=== PATIENT | female | born 1995 ===

== ENCOUNTER 2024-08-05 10:54 | Outpatient (CLI) | payer BC, SELFPAY | END 2024-08-05 10:55 | disposition home or self-care (01) | PROVIDERS: Visit Provider Family Medicine | DX: Z34.91 Encounter for supervision of normal pregnancy, unspecified, first trimester (principal); Z3A.01 Less than 8 weeks gestation of pregnancy | CPT/HCPCS: 80053; 86592; 86703; 86706; 86762; 86787; 86803; 86900; 86901; 87086; 87340; 87491; 87591 ==

== ENCOUNTER 2024-08-30 14:53 | Outpatient (CLI) | payer BC, SELFPAY ==
--- NOTE | 2024-08-30 15:00 | CRLHL7_ITS ---
For Patients: As a result of the Cures Act, medical imaging exams and procedure reports are released immediately into your electronic medical record. You may view this report before your referring provider. If you have questions, please contact your health care provider. INDICATION: First trimester scan, establish dates. COMPARISON: None. TECHNIQUE: Real-time gore-scale imaging of the pelvis was performed. FINDINGS: Sonographic imaging demonstrates a single living intrauterine gestation. The embryo demonstrates a regular cardiac rate measuring 169 beats per minute. The embryo`s crown-rump length measurement of 1.8 cm corresponds to a gestational age of 8 weeks 2 days with a sonographic due date of 04/09/2025. There is a normal-appearing yolk sac. There are no gross abnormalities noted within the embryo at this early state of development. The gestational sac has a normal appearance. There is no evidence of a perigestational hemorrhage. The amount of fluid within the sac appears appropriate for gestational age. The cervix is closed. The myometrium appears normal. Corpus luteal cyst right ovary. Nonvisualization left ovary. There are no suspicious fluid collections noted in the cul-de-sac. IMPRESSION: Single living intrauterine with sonographic gestational age 8 weeks 2 days and sonographic due date of 04/09/2025. Dictated by George Flor MD @ 08/30/2024 10:15:51 PM (Electronically Signed)
== END 2024-08-30 14:54 | disposition home or self-care (01) ==
PROVIDERS: Visit Provider Advanced Practice Midwife
DX: Z34.91 Encounter for supervision of normal pregnancy, unspecified, first trimester (principal); Z3A.08 8 weeks gestation of pregnancy
CPT/HCPCS: 76817

== ENCOUNTER 2024-08-30 16:33 | Outpatient (CLI) | payer BC, SELFPAY | END 2024-08-30 16:34 | disposition home or self-care (01) | PROVIDERS: Visit Provider Advanced Practice Midwife | DX: Z34.81 Encounter for supervision of other normal pregnancy, first trimester (principal); F19.11 Other psychoactive substance abuse, in remission | CPT/HCPCS: 80306; 86704; 86850 ==

== ENCOUNTER 2024-11-02 15:13 | Outpatient (CLI) | payer BC, SELFPAY | END 2024-11-02 15:14 | disposition home or self-care (01) | PROVIDERS: Visit Provider Obstetrics & Gynecology | DX: F19.11 Other psychoactive substance abuse, in remission (principal) | CPT/HCPCS: 80306 ==

== ENCOUNTER 2025-02-10 12:06 | Outpatient (CLI) | payer BC, SELFPAY | END 2025-02-10 12:07 | disposition home or self-care (01) | LOC: NFLDREF 02-13 18:23 | PROVIDERS: Visit Provider Obstetrics & Gynecology | DX: Z34.90 Encounter for supervision of normal pregnancy, unspecified, unspecified trimester (principal); Z3A.09 9 weeks gestation of pregnancy | CPT/HCPCS: 86592 ==

== ENCOUNTER 2025-02-10 12:08 | Outpatient (CLI) | payer BC, SELFPAY ==
--- NOTE | 2025-02-10 12:15 | CRLHL7_ITS ---
For Patients: As a result of the Cures Act, medical imaging exams and procedure reports are released immediately into your electronic medical record. You may view this report before your referring provider. If you have questions, please contact your health care provider. OBSTETRICAL ULTRASOUND ??? FOLLOW-UP INDICATION: Long-term drug use. CLINICAL HISTORY: AME by Ultrasound: 04/09/2025 Gestational Age: 31 weeks 5 days COMPARISON: 11/11/2024, 08/30/2024 TECHNIQUE: Real-time gore-scale transabdominal imaging of the fetus was performed. FINDINGS: Fetus: Single Cervix: Not visualized positioning: Vertex Amniotic Fluid: 6.8 cm SDP Placenta technique: Transabdominal Placenta position: Posterior heart rate: 133 bpm BIOMETRY: BPD: 8.4 cm, 33 weeks 4 days, 89.3% HC: 30.3 cm, 33 weeks 5 days, 68.2% AC: 28.6 cm, 32 weeks 4 days, 73.2% FL: 6.3 cm, 32 weeks 4 days, 60.2% FL/AC Ratio: 22.03% HC/AC ratio: 1.06 EFW: 2046 grams; 4 lbs. 8 oz. age by this ultrasound: 33 weeks 1 day AME by this ultrasound: 03/30/2025 Percentile by AME: 73.7% IMPRESSION: 1. Sonographic gestational age is 33 weeks 1 day and sonographic due date is 03/30/2025. Sonographic age is 10 days ahead of the clinical age. 2. Estimated weight is 74th percentile. Abdominal circumference is 73rd percentile. GEORGE CONCEPCION M.D. Diagnostic Radiologist [email or web address] Transcribed: 1:[address]/Dictated by: George Concepcion MD @ 02/10/2025 1:08:00 PM (Electronically Signed)
== END 2025-02-10 12:09 | disposition home or self-care (01) ==
LOC: US 12:09
PROVIDERS: Visit Provider Obstetrics & Gynecology
DX: O99.323 Drug use complicating pregnancy, third trimester (principal); F19.90 Other psychoactive substance use, unspecified, uncomplicated; O36.63X0 Maternal care for excessive fetal growth, third trimester, not applicable or unspecified; Z3A.31 31 weeks gestation of pregnancy; Z3A.09 9 weeks gestation of pregnancy
CPT/HCPCS: 76816; 86592

== ENCOUNTER 2025-03-02 08:14 | Outpatient (CLI) | payer BC, SELFPAY | END 2025-03-02 08:15 | disposition home or self-care (01) | LOC: NFLDREF 03-03 05:45 | PROVIDERS: Visit Provider Obstetrics & Gynecology | DX: R73.09 Other abnormal glucose (principal); Z34.93 Encounter for supervision of normal pregnancy, unspecified, third trimester | CPT/HCPCS: 82951; 82952 ==

== ENCOUNTER 2025-03-10 12:08 | Outpatient (CLI) | payer BC, SELFPAY ==
--- NOTE | 2025-03-10 12:15 | CRLHL7_ITS ---
For Patients: As a result of the Cures Act, medical imaging exams and procedure reports are released immediately into your electronic medical record. You may view this report before your referring provider. If you have questions, please contact your health care provider. OBSTETRICAL ULTRASOUND ??? FOLLOW-UP INDICATION: Long-term (current) drug therapy. CLINICAL HISTORY: AME by Ultrasound: 04/09/2025 Gestational Age: 35 weeks 5 days COMPARISON: 02/10/2025, 11/11/2024, 08/30/2024. TECHNIQUE: Real-time gore-scale transabdominal imaging of the fetus was performed. FINDINGS: Fetus: Single Cervix: Not visualized positioning: Vertex Amniotic Fluid: 7.7 cm SDP Placenta technique: Transabdominal Placenta position: Posterior heart rate: 133 bpm BIOMETRY: BPD: 9.2 cm, 37 weeks 3 days, 93.1% HC: 33.0 cm, 37 weeks 4 days, 65.7% AC: 33.0 cm, 37 weeks 0 days, 87.6% FL: 6.9 cm, 35 weeks 3 days, 37.8% FL/AC Ratio: 20.93% HC/AC ratio: 1.00 EFW: 3010 grams; 6 lbs. 10 oz. age by this ultrasound: 36 weeks 6 days AME by this ultrasound: 04/01/2025 Percentile by AME: 77.0% IMPRESSION: 1. Sonographic gestational age is 36 weeks 6 days and sonographic due date is 04/01/2025. Sonographic age is 8 days ahead of the clinical age. 2. Estimated weight is 77th percentile. Abdominal circumference is 88th percentile. GEORGE CONCEPCION M.D. Diagnostic Radiologist [email or web address] Transcribed: 4:[address]/Dictated by: George Concepcoin MD @ 03/10/2025 2:26:00 PM (Electronically Signed)
== END 2025-03-10 12:09 | disposition home or self-care (01) ==
LOC: US 12:08
PROVIDERS: Visit Provider Obstetrics & Gynecology
DX: O99.343 Other mental disorders complicating pregnancy, third trimester (principal); F90.9 Attention-deficit hyperactivity disorder, unspecified type; O99.013 Anemia complicating pregnancy, third trimester; Z79.899 Other long term (current) drug therapy; Z3A.35 35 weeks gestation of pregnancy
CPT/HCPCS: 76816

== ENCOUNTER 2025-03-10 14:50 | Outpatient (CLI) | payer BC, SELFPAY ==
[2025-03-11 13:41] LABS: Strep B DNA Probe POSITIVE (Negative)
[2025-03-11 13:45] LABS: Strep B Susceptibility Needed? No
== END 2025-03-10 14:51 | disposition home or self-care (01) ==
LOC: NFLDREF 14:50
PROVIDERS: Visit Provider Obstetrics & Gynecology
DX: O99.013 Anemia complicating pregnancy, third trimester (principal); Z3A.35 35 weeks gestation of pregnancy
CPT/HCPCS: 82728; 87081; 87653

== ENCOUNTER 2025-03-21 10:05 | Outpatient (CLI) | payer BC, SELFPAY ==
--- NOTE | 2025-03-21 10:00 | CRLHL7_ITS ---
For Patients: As a result of the Cures Act, medical imaging exams and procedure reports are released immediately into your electronic medical record. You may view this report before your referring provider. If you have questions, please contact your health care provider. OB ULTRASOUND AME by US: 04/09/2025. GA: 37 w, 2 d. Single. Comparison: Ultrasound 03/10/2025, 02/10/2025, 01/19/2025. INDICATION: Gestational diabetes. TECHNIQUE: Real time grayscale imaging of the fetus was performed. Transabdominal. CERVIX: Not visualized. POSITIONING: Vertex. AMNIOTIC FLUID: 6.1 cm. SDP (N: greater than 2 x 1 cm) BIOPHYSICAL PROFILE: 2: Gross body movements 2: tone 0: Respiratory activity 2: Amniotic fluid SDP (N: greater than 2 x 1 cm) 6/8: Total score PLACENTA: Technique: Transabdominal. PLACENTA POSITION: Anterior. DOPPLER: heart rate: 130 bpm. IMPRESSION: Biophysical profile score 6/8 with absent respiratory activity. George Flor M.D. Diagnostic Radiologist [email or web address]/Dictated by: George Flor MD @ 03/21/2025 11:47:00 AM (Electronically Signed)
== END 2025-03-21 10:06 | disposition home or self-care (01) ==
LOC: US 10:05
PROVIDERS: Visit Provider Obstetrics & Gynecology
DX: O35.BXX0 Maternal care for other (suspected) fetal abnormality and damage, fetal cardiac anomalies, not applicable or unspecified (principal); O24.419 Gestational diabetes mellitus in pregnancy, unspecified control; Z3A.37 37 weeks gestation of pregnancy
CPT/HCPCS: 76819

== ENCOUNTER 2025-03-21 11:43 | Outpatient (CLI) | payer BC, SELFPAY ==
[2025-03-21 12:00] VITALS: BMI 41.5
[2025-03-21 12:05] VITALS: BP 102/55; PULSE 75; TEMP 36.6
--- NOTE | 2025-03-21 14:59 | PC.OBNST ---
NST Note NST Note Start: 03/21/25 11:47 Freq: ONCE Status: Active Protocol: Document 03/21/25 14:00 CWP (Rec: 03/21/25 14:59 CWP Desktop) NST Note 5 Para (# of births) 3 EDC 04/09/25 Gestational Age In 37 Weeks & 2 Days Weeks & Days High Risk Factors Diabetes - Gestational Insulin Patient Presented Other with Complaint(s) of Other Complaints Decelerations noted in clinic during NST Reactive Yes Appropriate for Yes Gestational Age RN Erica Choe RNC Date 03/21/25 Reactive Yes Appropriate for Yes Gestational Age VIRGEN Ortez MD Date 03/21/25 OB NST charge Yes Complete NST Note Yes via Write Note The provider's electronic signature indicates the NST is reactive/appropriate for gestational age. *Note to provider: If an addendum is required, open the patient's chart and click on the note under the Nurse/Allied Health tab.
== END 2025-03-21 14:20 | disposition home or self-care (01) ==
LOC: OB OUT 11:43 → OB 11:46
PROVIDERS: Visit Provider Obstetrics & Gynecology
DX: O35.BXX0 Maternal care for other (suspected) fetal abnormality and damage, fetal cardiac anomalies, not applicable or unspecified (principal); O24.419 Gestational diabetes mellitus in pregnancy, unspecified control; Z3A.37 37 weeks gestation of pregnancy
CPT/HCPCS: 59025; G0463

== ENCOUNTER 2025-03-22 13:12 | Outpatient (CLI) | payer BC, SELFPAY ==
--- NOTE | 2025-03-22 13:15 | CRLHL7_ITS ---
For Patients: As a result of the Century Cures Act, medical imaging exams and procedure reports are released immediately into your electronic medical record. You may view this report before your referring provider. If you have questions, please contact your health care provider. INDICATION: Gestational diabetes TECHNIQUE: Ultrasound OB pelvis transabdominal. Real-time gore-scale imaging of the fetus was performed. COMPARISON: Ob ultrasound 03/21/2025 FINDINGS: Gestation: Single Presentation: Cephalic Placenta location: Posterior heart rate: 136 bpm Cervix: Not visualized Amniotic fluid volume single deepest pocket 4.9 cm, 2/2. motion 2/2. tone 2/2. breathing movements 2/2. IMPRESSION: Single live intrauterine gestation with a biophysical profile 12/09 at 37 weeks, 3 days. AME of 04/09/2025. Dictated by Marizol Khan MD @ 03/22/2025 3:28:10 PM (Electronically Signed)
== END 2025-03-22 13:13 | disposition home or self-care (01) ==
LOC: US 13:13
PROVIDERS: Visit Provider Obstetrics & Gynecology
DX: O24.419 Gestational diabetes mellitus in pregnancy, unspecified control (principal); Z3A.37 37 weeks gestation of pregnancy
CPT/HCPCS: 76819

== ENCOUNTER 2025-03-23 16:11 | Inpatient (IN) | payer BC, SELFPAY ==
[2025-03-23 16:25] VITALS: BP 115/63; PULSE 110; PULSE 113; TEMP 36.6; O2SAT 91
[2025-03-23 16:26] VITALS: PULSE 104; O2SAT 96
--- NOTE | 2025-03-23 16:58 | PM.OBHPLI ---
OB - H&P: HPI Labor/Induction History of Present Illness Time Seen by Provider: 16:58 Date Seen: 03/23/25 Chief complaint: maternity Narrative: The patient is a 30 year old 5 para 3 at 37 weeks gestation by first trimester US, who presents for scheduled induction of labor in the setting of poorly controlled GDM A2. Her complete H&P was completed by Dr. Ortez on 03/16, please see this for details. is otherwise complicated by GBS positivity, mental health disorder (anxiety, depression, ADHD, PTSD), polypharmacy in , anemia, history of substance use disorder (methamphetamine - sober X1 year at time of new Ob, THC), history of retained placenta, history of , GERD, tobacco use disorder with vaping. Of note, recent history notable for equivocal BPP on 03/21, where patient declined induction. BPP the following day was 8/8. Patient is feeling well today with no acute concerns. Had one contraction when she first got here, but denies regular/painful contractions. No vaginal bleeding or leaking of fluid. Endorses active movement. She is maintained on insulin NPH 15 units q.h.s., despite this, her blood sugars have remained suboptimally controlled. Specific Issues/Plans Fiance: Tony, first child together (She has 2 that live with Ex, 1 that lives with another Ex) He has other children as well H&P 03/16 Dr. Ortez # BPP 6/10 on 03/21. Patient declined IOL. Repeat BPP 03/20: [] # GDMA2 diagnosed 03/16 = 36 4/7 weeks Consult with August for initiation of insulin 03/16: NPH 15 u QHS Biweekly testing initiated IOL for 37th week Elevated 1hr GTT 3hrGTT: 119 fasting / consistent with gestational diabetes Q.i.d. blood sugar monitoring Nutrition consult: completed # GBS positive Ampicillin in labor # Significant Mental Health; Anxiety/Depression, ADHD, PTSD Stable on Atomoxetine 100 mg, Gabapentin 400 mg TID PRN, Guanfacine 1 mg QPM, Lamotrigine ER 100 mg, Methylphenidate HCL ER 72 mg, Prazosin 1 mg QPM Seeing a therapist, 1x week [facility] [place] daily, weekdays, on court commitment for 3 months (has about 1 month left) Psychiatrist, manages meds History of suicidal ideation MFM Recommendation: serial growth scans beginning 28 weeks due to polypharmacy. ? # Polypharmacy in . Seen by Medication Therapy management at [facility] 10/13 Atomoxetine: little human data; consider reducing dose Lamotrigine: possible increased risk of cleft lip Amphetamines (methylphenidate ER): possible increased risk of , LBW, preE; low risk with medicinal doses Gabapentin: possible increased risk of SGA, delivery Prazosin: low risk Marijuana: conflicting reports of risk #Anemia Hgb at 31 weeks: 7.8 mg/dL IV iron infusion: received 02/16 Repeat Hb at 36 weeks: 10.0 # Hx of Methamphetamine use, sober 1 yr, 1 months at [facility] Agreed to UDS, negative for methamphetamines Pt reports she only used meth for a short while UDS on 11/02: negative UDS on admission # Hx of THC use, reported she had not used since 02/03/2024 FALSE positive +THC at new Ob (confirmatory 08/30) UDS 11/02: negative UDS on admission ? # Hx of deliveries with 1st baby per records Per patient previous, all children born before 36 week; requested delivery notes Per records, her 2nd and 3rd child were born at 39.2 weeks, limited or no care during these pregnancies #GERD Omeprazole daily # Hx of retained placenta, 1st Removed in OR, delivery # Vaping, nicotine daily Encouraged to stop, reviewed risks # Hep B non-immune Low risk but desired vaccine - given 09/28 Imaging:? 1st trimester: (08/30) Single living intrauterine with sonographic gestational age 8 weeks 2 days and sonographic due date of 04/09/2025. Anatomy scan: 11/11: Level 2. cephalic, posterior placenta without previa, 3VC, MVP 5.2 cm, EFW 52%, AC 60%, normal anatomy. 02/11/25: Vertex, SDP: 6.8 cm. EFW: 2046g, 73.7%. AC: 73%. 03/10/25: Vertex presentation, EFW 3010 g (77%), BPD 93%, HC 66%, AC 88%, FL 38%, SDP 7.7 cm COVID:??09/28/24 Flu:?received Tdap:?02/10/25 RSV: 02/23/25 32wk Mental Health: VICENTA 2, PHQ 2 34wk hgb:??? Pap: 01/18/2024, NIL? Meds Home Medications and Allergies Home Medications ?Medication ?Instructions ?Recorded ?Confirmed ?Type albuterol sulfate 90 mcg/actuation 2 puff inhalation Q2H PRN 08/05/24 03/23/25 History aerosol inhaler (Ventolin HFA) epinephrine 0.3 mg/0.3 mL 0.3 mg (0.3 mL) IM Q5-15M PRN 08/05/24 03/23/25 Rx injection, auto-injector (EpiPen anaphylaxis #2 ea 2-Ren) gabapentin 400 mg capsule 400 mg PO 3XD PRN anxiety 08/05/24 03/23/25 History guanfacine 1 mg tablet 1 mg PO QPM 08/05/24 03/23/25 History lamotrigine 100 mg tablet,extended 100 mg PO DAILY 08/05/24 03/23/25 History release 24 hr methylphenidate HCl 36 mg 72 mg PO QAM 08/05/24 03/23/25 History tablet,extended release 24 hr prazosin 2 mg capsule 4 mg PO QHS 08/05/24 03/23/25 History omeprazole 20 mg capsule,delayed 20 mg PO BID #200 caps 11/30/24 03/23/25 Rx release ondansetron 4 mg disintegrating 4 - 8 mg (1 - 2 x 4 mg) PO QHS PRN 02/11/25 03/23/25 Rx tablet nausea and vomiting #20 tabs Blood Glucose Meter #1 ea 03/02/25 03/21/25 Rx Test Strips #100 ea 03/02/25 03/21/25 Rx lancets #100 ea 03/02/25 03/21/25 Rx alcohol swabs (Alcohol Pads) 2 pad topical DAILY #100 ea 03/16/25 03/23/25 Rx insulin NPH isoph U-100 human 100 15 unit (0.15 mL) subcut .hs #30 mL 03/16/25 03/23/25 Rx unit/mL subcutaneous suspension (Humulin N NPH U-100 Insulin (isophane susp)) insulin syringe-needle U-100 1 mL #20 ea 03/16/25 03/21/25 Rx 30 gauge x 5/16 (Sure Comfort Insulin Syringe) Allergies Allergy/AdvReac Type Severity Reaction Status Date / Time bee venom protein (honey bee) Allergy Severe Verified 03/23/25 16:48 strawberry Allergy Severe Anaphylaxis Verified 03/23/25 16:48 OB - H&P: Exam Physical Exam: Vital signs: Temp Pulse BP Pulse Ox 98 F 110 H 115/63 96 03/23/25 16:25 03/23/25 16:25 03/23/25 16:25 03/23/25 16:26 Narrative: General: Alert and oriented, no acute distress Psych: Appropriate mood and affect Abdomen: Gravid. EFW by ultrasound on 03/10 was 3010 g at 77th percentile, AC 88th percentile. Cervix: 1/50/-3. Cook catheter placed without difficulty, 60 mL of saline in each balloon. NST: Reactive. Baseline 130 beats per minute, moderate variability, several accelerations present, no apparent decelerations. Wisner: Uterine irritability with no obvious contractions. OB - Problem Based A/P Additional Plan (1) GDM, class A2: Status: Acute (2) Anemia affecting : Status: Acute (3) History of marijuana use: Status: Acute (4) History of methamphetamine abuse: Status: Acute (5) Major depression: Status: Acute (6) PTSD (post-traumatic stress disorder): Status: Acute (7) Generalized anxiety disorder: Status: Acute (8) ADHD: Status: Acute (9) GERD (gastroesophageal reflux disease): Status: Acute Plan Leanna is a 30 year old 5 para 3 at 37 weeks gestation by first trimester US, who presents for scheduled induction of labor in the setting of poorly controlled GDM A2. is otherwise complicated by GBS positivity, mental health disorder (anxiety, depression, ADHD, PTSD), polypharmacy in , anemia, history of substance use disorder (methamphetamine - sober X1 year at time of new Ob, THC), history of retained placenta, history of , GERD, tobacco use disorder with vaping. Her complete H&P was completed by Dr. Ortez on 03/16, please see this for details. - Cervix is 1/50/-3 on admission. Cook catheter placed without difficulty, plan low dose pitocin augmentation overnight. - Plan to administer half of her baseline insulin - 8u NPH at bedtime tonight. Continue BG monitoring and SSI per protocol. - GBS positive, start ampicillin alongside pitocin or with ROM. - BT A+
[2025-03-23 17:00] VITALS: PULSE 88; O2SAT 96
[2025-03-23 18:53] LABS: Hematocrit* 34.1 % (33.0-51.0); Hemoglobin* 10.7 gm/dL (12.0-16.0); Immature Granulocytes Pct Auto 0.9 %; Mean Corpuscular HGB Conc 31 gm/dL (32-36); Mean Corpuscular Hemoglobin 25 pg (26-34); Mean Corpuscular Volume 81 fL (80-100); Red Blood Count* 4.23 m/uL (4.00-5.20); White Blood Count* 12.40 K/uL (4.50-11.00)
[2025-03-23 18:54] LABS: Immature Granulocytes Abs Auto 0.10 K/uL (0.00-0.30); Lymphocytes Absolute Auto 1.70 K/uL (0.90-2.90); Slide Review Reflex Yes
[2025-03-23 19:28] LABS: Slide Review Acceptable Review (Acceptable)
[2025-03-23 19:59] LABS: Cannabinoid Screen Urine POSITIVE (Negative); Methamphetamines Screen Urine Negative (Negative); Tricyclic Antidepressant Urine Negative (Negative)
[2025-03-23 20:10] VITALS: BMI 41.6
[2025-03-23] MEDS: GABAPENTIN 600 MG TABLET 400 MG PO (20:35)
[2025-03-23] MEDS: OMEPRAZOLE 20 MG CAPSULE DR PO (20:35)
[2025-03-23] MEDS: PRAZOSIN HCL 1 MG CAPSULE 4 MG PO (20:37)
[2025-03-23] MEDS: INSULIN NPH 100 UNIT/ML 8 UNIT SUBCUT (20:53)
[2025-03-23 20:57] VITALS: BP 105/53; PULSE 77; RESP 16; TEMP 36.8
[2025-03-23 23:41] VITALS: BP 111/58; PULSE 90; RESP 16; TEMP 36.8
[2025-03-24] VITALS (47 sets, daily range): BP systolic 82–125; BP diastolic 47–73; PULSE 65–129; RESP 16–19; TEMP 36.7–36.8; O2SAT 89–98
[2025-03-24] MEDS: LACTATED RINGERS 1000 ML 1,000 ML 125 ML IV ×2 (04:35→12:59)
[2025-03-24] MEDS: AMPICILLIN 2 GM in 0.9 % SODIUM CHLORIDE Mini-bag 100 ML IVPB (04:36)
[2025-03-24] MEDS: OXYTOCIN 30 unit/500 ML in NS 30 UNIT/500 ML BAG IVPB (04:37)
[2025-03-24] MEDS: INSULIN ASPART 100 UNIT/ML SUBCUT ×2 (06:48→10:11)
[2025-03-24] MEDS: OMEPRAZOLE 20 MG CAPSULE DR PO (08:58)
[2025-03-24] MEDS: AMPICILLIN 1 GM in 0.9 % SODIUM CHLORIDE Mini-bag 100 ML IVPB ×2 (09:16→13:28)
[2025-03-24] MEDS: LACTATED RINGERS 1000 ML 1,000 ML 1200 ML IV (11:32)
[2025-03-24] MEDS: ROPIVACAINE 0.2% 100 ml 100 ML 12 MG EPIDURAL (11:43)
[2025-03-24] MEDS: BUPIVACAINE 0.25% PF 10 ML 10 ML ML EPIDURAL (11:43)
--- NOTE | 2025-03-24 12:10 | PM.ANBPRC ---
[facility] Medical History Polypharmacy ?Z79.899 - Other retirement (current) drug therapy (ICD-10) Anaphylactic reaction ?T78.2XXA - Anaphylactic shock, unspecified, initial encounter (ICD-10) GERD (gastroesophageal reflux disease) ?K21.9 - Gastro-esophageal reflux disease without esophagitis (ICD-10) Surgical History No pertinent past surgical history ?Z78.9 - Other specified health status (ICD-10) Family History Father Chronic mental illness Other Diabetes Heart disease Social History Narrative: SOCIAL Lives in [place] with partner; 2 kids every weekend Education: 9th grade Work: none Partner: Tony, army officer Lives with: with Tony; engaged Pets: none Abuse: Denies past/present Special Diet: Denies Ok with a blood transfusion: yes Culture or temple beliefs: denies RISK FACTORS Exercise Times/wk: Walk, daily Hx of Depression and/or Anxiety/other mood disorder: ADHD, Anxiety and Depression, PTSD Seeing a therapist, 1x week [facility] [place] daily, week days Psychiatrist, manages meds History of suicidal ideation Seat Belt Use: Routinely Smoking: Vaping, nicotine; 1 week gets replacement Alcohol/day: Denies while ; none prior Caffeine: Coffee, daily Drug Use: Denies present; 02/03/2024 Marijuana; Sober from methamphetamines 6 month 27 days Chicken Pox: vaccinated for MRSA: Denies What is your current living situation?: I presently have a place to live Problems where you live: no known problems In the past 12 months, utilities in danger of being shut off: no In past 12 months, lack of transportation kept you from medical appts, meetings, work, or getting things needed for daily living: no In the past 12 mos, have been you worried that your food would run out before you had money to buy more?: never true In the past 12 mos, the food you bought just didn't last and you didn't have money to buy more?: never true Smoking Status: Former smoker How often does anyone, including family, friends and others, physically hurt you: never How often does anyone, including family, friends and others, insult or talk down to you: never How often does anyone, including family, friends and others, threaten you with harm: never How often does anyone, including family, friends and others, scream or curse at you: never Meds Home Medications and Allergies Home Medications ?Medication ?Instructions ?Recorded ?Confirmed ?Type albuterol sulfate 90 mcg/actuation 2 puff inhalation Q2H PRN 08/05/24 03/23/25 History aerosol inhaler (Ventolin HFA) epinephrine 0.3 mg/0.3 mL 0.3 mg (0.3 mL) IM Q5-15M PRN 08/05/24 03/23/25 Rx injection, auto-injector (EpiPen anaphylaxis #2 ea 2-Ren) gabapentin 400 mg capsule 400 mg PO 3XD PRN anxiety 08/05/24 03/23/25 History guanfacine 1 mg tablet 1 mg PO QPM 08/05/24 03/23/25 History lamotrigine 100 mg tablet,extended 100 mg PO DAILY 08/05/24 03/23/25 History release 24 hr methylphenidate HCl 36 mg 72 mg PO QAM 08/05/24 03/23/25 History tablet,extended release 24 hr prazosin 2 mg capsule 4 mg PO QHS 08/05/24 03/23/25 History omeprazole 20 mg capsule,delayed 20 mg PO BID #200 caps 11/30/24 03/23/25 Rx release ondansetron 4 mg disintegrating 4 - 8 mg (1 - 2 x 4 mg) PO QHS PRN 02/11/25 03/23/25 Rx tablet nausea and vomiting #20 tabs Blood Glucose Meter #1 ea 03/02/25 03/23/25 Rx Test Strips #100 ea 03/02/25 03/23/25 Rx lancets #100 ea 03/02/25 03/23/25 Rx alcohol swabs (Alcohol Pads) 2 pad topical DAILY #100 ea 03/16/25 03/23/25 Rx insulin NPH isoph U-100 human 100 15 unit (0.15 mL) subcut .hs #30 mL 03/16/25 03/23/25 Rx unit/mL subcutaneous suspension (Humulin N NPH U-100 Insulin (isophane susp)) insulin syringe-needle U-100 1 mL #20 ea 03/16/25 03/23/25 Rx 30 gauge x 5/16 (Sure Comfort Insulin Syringe) Allergies Allergy/AdvReac Type Severity Reaction Status Date / Time bee venom protein (honey bee) Allergy Severe Verified 03/23/25 16:48 strawberry Allergy Severe Anaphylaxis Verified 03/23/25 16:48 Results Labs Labs: Laboratory Results - last 24 hr 03/23/25 03/23/25 17:32 19:40 WBC 12.40 H RBC 4.23 Hgb 10.7 L Hct 34.1 MCV 81 MCH 25 L MCHC 31 L Plt Count 238 Neut % (Auto) 78.8 H Lymph % (Auto) 13.5 L Lake % (Auto) 5.6 Eos % (Auto) 1.0 Baso % (Auto) 0.2 Neut # (Auto) 9.80 H Lymph # (Auto) 1.70 Lake # (Auto) 0.70 Eos # (Auto) 0.10 Baso # (Auto) 0.00 Abs Immat Gran (auto) 0.10 Imm/Tot Granulo (auto) 0.9 Diff Slide Review Acceptable Review Urine Opiates Screen Negative Ur Oxycodone Screen Negative Urine Methadone Screen Negative Ur Barbiturates Screen Negative U Tricyclic Antidepress Negative Ur Phencyclidine Scrn Negative Ur Amphetamines Screen Negative U Methamphetamines Scrn Negative U Benzodiazepines Scrn Negative Urine Cocaine Screen Negative U Marijuana (THC) Screen POSITIVE A Ur Drug Screen Comment See Note Blood Type A Positive Antibody Screen NEGATIVE Vital Signs Vital Signs: Last Vital Signs Temp 98.0 F 03/24/25 07:55 Pulse 74 03/24/25 12:10 Resp 19 03/24/25 07:55 BP 110/63 03/24/25 12:10 Pulse Ox 95 03/24/25 12:00 Weight: 108.363 kg Height: 161.29 cm Anesthesia Procedures Epidural Insertion Patient Location: OB Start Time: 11:45 Stop Time: 12:45 Start Date: 03/24/25 Stop Date: 03/24/25 Reason for Block: procedure for pain Patient Position: sitting Performed By: Yobany Locke Preanesthetic Checklist: IV checked, risks and benefits discussed, monitors and equipment checked, pre-op evaluation, timeout performed and anesthesia consent Prep: chlorhexidine gluconate Monitoring: blood pressure monitoring, continuous pulse oximetry and heart rate Approach: midline Vertebral Space: lumbar (1-5) Epidural Technique: NICHOLAS saline Needle Type: Tuohy needle Injection Technique: continuous catheter Needle gauge: 17 Needle Length (cm): 10 cm Needle Insertion Depth (cm): 7 Catheter Gauge: 19 Catheter Type: multi-orifice Catheter at skin depth (cm): 13 Test Dose Result: negative and lidocaine 1.5% with epinephrine 1 to 200,000
[2025-03-24] MEDS: ONDANSETRON 2 MG/ML inj 4 MG IV (12:42)
[2025-03-24] MEDS: PHENYLEPHRINE 100 MCG/ML SYRINGE IVP ×2 (13:17→13:24)
[2025-03-24] MEDS: ePHEDrine sulfate 5 MG/ML inj 10 MG IVP ×2 (13:32→14:34)
--- NOTE | 2025-03-24 16:44 | W.PM.OBVAGDE ---
OB Procedure Vag Delivery Mother Details Mother Details: The patient is a 30 year-old, 5, Para 3, admitted on 03/23/25 at 37 4/7 Days gestation. IOL started last night due to uncontrolled GDMA2. IOL started with placement of cook catheter and IV oxytocin over night. Patient was checked this morning and was found per nurses dilated at 3.5-4cm. IV Oxytocin was up titrated and patient started to experience more frequent and painful contractions. Patient was not coping well with pain and first tried Nitrous that only provided mild relieve, patient then requested epidural placement prior to AROM. After epidural was placed, she was found to be 5-6cm and AROM was completed. Patient progressed to full dilation shortly after. : 5 Para: 4 Weeks Gestation: 37.5 Admission Date: 03/23/25 Additional Details Amniotic Membrane Status: AROM Amniotic Membrane Rupture Date: 03/24/25 Amniotic Membrane Rupture Time: 13:51 Amniotic Membrane Fluid Description: Clear Analgesia/Anesthesia Type: Epidural and Nitrous Oxide Waterbirth: No Pitcoin: Yes Intrapartal Events: Labor Induction Induction Method: Intracervical balloon catheter, per pitocin protocol and AROM Labor Onset: : Complete: 15:48 Pushin:00 Heart: heart tones during second stage were category 2. Difficult to establish a baseline, but FHR was always noted to be in the 120s and with pushing progressive movement was noted. Delivery Details Delivery Date: 03/24/25 Delivery Time: 16:05 Route of delivery: Infant Gender: Male Infant Viability: Alive; Heart Rate Present Position at Delivery: OA Delivery Details: Delivered via spontaneous vaginal delivery. was placed on maternal abdomen.? Cord was clamped and cut after a 30-60 second delay. Nose and mouth were bulb suctioned.? Infant weight 6 pounds and 15 ounces. Peds provider at delivery due to history of multiple medication exposure in . 1 Minute Interval Total Score: 8 5 Minute Interval Total Score: 9 Additional Details Shoulder Dystocia: No Placenta Delivery Time: 16:10 Placental Delivery Description: Spontaneous Procedure Done: Global Blood Loss: 100 Laceration: None Episiotomy Description: None Blood Loss Measurement Type: QBL Bakri Used: No Sponge/Need Count Correct: Yes Cord Vessel Description: 3 Vessels Event Summary Status: Mother and infant were stable after delivery. Disposition: floor
[2025-03-24] MEDS: OMEPRAZOLE 20 MG CAPSULE PO (20:49)
[2025-03-24] MEDS: IBUPROFEN 600 MG TABLET PO (22:56)
[2025-03-25 02:08] VITALS: BP 95/62; PULSE 84; RESP 18; O2SAT 97
[2025-03-25] MEDS: ACETAMINOPHEN 500 MG TABLET 1000 MG PO ×2 (02:34→08:57)
[2025-03-25 05:09] VITALS: BP 88/53; PULSE 69; RESP 18; TEMP 36.4; O2SAT 98
[2025-03-25] MEDS: IBUPROFEN 600 MG TABLET PO ×2 (05:24→12:07)
[2025-03-25] MEDS: OMEPRAZOLE 20 MG CAPSULE PO (08:44)
[2025-03-25] MEDS: GABAPENTIN 400 MG CAPSULE PO (08:44)
[2025-03-25] MEDS: DOCUSATE SODIUM 100 MG CAPSULE PO (08:44)
[2025-03-25 08:47] VITALS: BP 107/71; PULSE 67; RESP 16; TEMP 36.6; O2SAT 98
[2025-03-25 09:30] LABS: Hemoglobin* 10.5 gm/dL (12.0-16.0)
--- NOTE | 2025-03-25 11:40 | P.DS_ITS ---
DS: Providers Provider Date Seen: 03/25/25 Date of admission: 03/23/25 16:11 Primary care physician: Not a Local Provider Admitting Clinician: Geraldine Presley MD Attending Physician on discharge: Palak Ross MD Date of Discharge: 03/25/25 DS: Diagnosis Discharge Diagnosis (1) Status post normal vaginal delivery: Status: Acute (2) GDM, class A2: Status: Acute (3) Acute blood loss anemia: Status: Acute Exam Const: Vital Signs, click to edit/add: Vital Signs - 24 hr 03/24/25 11:49 03/24/25 11:50 03/24/25 11:55 Temperature Pulse Rate Pulse Rate [Blood Pressure Cuff] Respiratory Rate Blood Pressure Blood Pressure [Ri ght Arm] Pulse Oximetry 89 96 96 Oxygen Delivery Me thod 03/24/25 11:56 03/24/25 11:58 03/24/25 12:00 Temperature Pulse Rate 91 85 83 Pulse Rate [Blood Pressure Cuff] Respiratory Rate Blood Pressure 125/63 119/58 L 110/60 Blood Pressure [Ri ght Arm] Pulse Oximetry 94 95 Oxygen Delivery Me thod 03/24/25 12:03 03/24/25 12:06 03/24/25 12:08 Temperature Pulse Rate 82 82 77 Pulse Rate [Blood Pressure Cuff] Respiratory Rate Blood Pressure 111/56 L 115/54 L 115/64 Blood Pressure [Ri ght Arm] Pulse Oximetry Oxygen Delivery Me thod 03/24/25 12:10 03/24/25 12:12 03/24/25 12:18 Temperature Pulse Rate 74 71 87 Pulse Rate [Blood Pressure Cuff] Respiratory Rate Blood Pressure 110/63 111/59 L 109/59 L Blood Pressure [Ri ght Arm] Pulse Oximetry Oxygen Delivery Me thod 03/24/25 12:23 03/24/25 12:54 03/24/25 13:09 Temperature Pulse Rate 65 84 75 Pulse Rate [Blood Pressure Cuff] Respiratory Rate Blood Pressure 110/58 L 92/55 L 86/47 L Blood Pressure [Ri ght Arm] Pulse Oximetry Oxygen Delivery Me thod 03/24/25 13:24 03/24/25 13:31 03/24/25 13:34 Temperature Pulse Rate 65 76 75 Pulse Rate [Blood Pressure Cuff] Respiratory Rate Blood Pressure 87/54 L 85/48 L 88/50 L Blood Pressure [Ri ght Arm] Pulse Oximetry Oxygen Delivery Me thod 03/24/25 13:39 03/24/25 13:44 03/24/25 13:50 Temperature Pulse Rate 105 H 99 87 Pulse Rate [Blood Pressure Cuff] Respiratory Rate Blood Pressure 87/53 L 87/54 L 99/53 L Blood Pressure [Ri ght Arm] Pulse Oximetry Oxygen Delivery Me thod 03/24/25 14:00 03/24/25 14:18 03/24/25 14:32 Temperature Pulse Rate 85 73 84 Pulse Rate [Blood Pressure Cuff] Respiratory Rate Blood Pressure 100/55 L 100/59 L 82/48 L Blood Pressure [Ri ght Arm] Pulse Oximetry Oxygen Delivery Me thod 03/24/25 14:37 03/24/25 14:46 03/24/25 15:02 Temperature Pulse Rate 83 88 93 Pulse Rate [Blood Pressure Cuff] Respiratory Rate Blood Pressure 94/51 L 87/50 L 97/48 L Blood Pressure [Ri ght Arm] Pulse Oximetry Oxygen Delivery Me thod 03/24/25 15:10 03/24/25 15:16 03/24/25 15:31 Temperature 98.3 F Pulse Rate 84 108 H Pulse Rate [Blood Pressure Cuff] Respiratory Rate 16 Blood Pressure 98/52 L 88/51 L Blood Pressure [Ri ght Arm] Pulse Oximetry Oxygen Delivery Me thod 03/24/25 16:05 03/24/25 16:10 03/24/25 16:12 Temperature Pulse Rate 79 Pulse Rate [Blood Pressure Cuff] Respiratory Rate Blood Pressure 108/57 L Blood Pressure [Ri ght Arm] Pulse Oximetry 98 97 Oxygen Delivery Me thod 03/24/25 16:27 03/24/25 16:42 03/24/25 16:57 Temperature Pulse Rate 91 76 76 Pulse Rate [Blood Pressure Cuff] Respiratory Rate Blood Pressure 105/56 L 109/57 L 106/56 L Blood Pressure [Ri ght Arm] Pulse Oximetry Oxygen Delivery Me thod 03/24/25 17:12 03/24/25 17:27 03/24/25 17:45 Temperature Pulse Rate 73 75 80 Pulse Rate [Blood Pressure Cuff] Respiratory Rate Blood Pressure 109/57 L 111/57 L 107/59 L Blood Pressure [Ri ght Arm] Pulse Oximetry Oxygen Delivery Me thod 03/24/25 17:57 03/24/25 18:12 03/24/25 20:30 Temperature 98.3 F Pulse Rate 93 90 Pulse Rate [Blood Pressure Cuff] 99 Respiratory Rate 16 Blood Pressure 109/64 107/59 L Blood Pressure [Ri ght Arm] 119/73 Pulse Oximetry Oxygen Delivery Me thod Room Air 03/25/25 02:08 03/25/25 05:09 03/25/25 08:47 Temperature 97.6 F 97.8 F Pulse Rate Pulse Rate [Blood Pressure Cuff] 84 69 67 Respiratory Rate 18 18 16 Blood Pressure Blood Pressure [Ri ght Arm] 95/62 88/53 L 107/71 Pulse Oximetry 97 98 98 Oxygen Delivery Me thod Room Air Room Air Room Air Documenting provider has reviewed patient's vital signs: yes Common normals: no apparent distress and oriented x3 General appearance: cooperative and comfortable Resp: Common normals: normal respiratory effort Cardio: Common normals: regular rate Rate: regular rate GI: Common normals: soft to palpation and non-tender Inspection: normal to inspection Palpation: soft Extremity: Common normals: normal to inspection and no pedal edema Neuro: Common normals: oriented x3 Psych: Common normals: affect normal OB - DS: Summary Hospital Course Hospital Course: The patient is a 30 year old G 5 P 3104 at 37 5/7 weeks gestation that was admitted to the Center on 03/23/25 for scheduled induction of labor in the setting of poorly controlled GDM A2. She had an uncomplicated vaginal delivery. She delivered a viable male infant. She is bottle feeding and working on breast pumping to encourage her milk to come in. the patient has done well. Peripartum Data Infant delivery method: Vaginal Laceration description: None Episiotomy description: None [place] Gender: Male Infant Discharge Plan: Home Status at Discharge Functional status at discharge: independent ambulation Overall status at discharge: patient is back to baseline Time Spent with Patient Time attestation: Total time spent providing and/or coordinating discharge services: Time spent: Less than 30 minutes Discharge Plan Discharge Disposition: Home, Self-Care Date of Admission: 03/23/25 16:11 Attending Provider on Discharge: Palak Ross Consulting Providers: Liset Beal Primary Care Provider: Provider,Not a Local Condition: Stable Anticipated Discharge Date/Time: 03/25/25 17:00 Discharge Medications: New docusate sodium 100 mg Capsule 100 mg PO DAILY Qty: 30 0RF ibuprofen 600 mg Tablet 600 mg PO Q6H PRNQty: 30 0RF ferrous sulfate 325 mg (65 mg iron) tablet,delayed release (DR/EC) 325 mg PO DAILY Qty: 30 0RF Continued guanfacine 1 mg tablet 1 mg PO QPM prazosin 2 mg capsule 4 mg PO QHS gabapentin 400 mg capsule 400 mg PO 3XD PRN (Reason: anxiety) methylphenidate HCl 36 mg tablet extended release 24hr 72 mg PO QAM lamotrigine 100 mg tablet extended release 24hr 100 mg PO DAILY albuterol sulfate [Ventolin HFA] 90 mcg/actuation HFA aerosol inhaler 2 puff inhalation Q2H PRN epinephrine [EpiPen 2-Ren] 0.3 mg/0.3 mL auto-injector 0.3 mg IM Q5-15M PRN (Reason: anaphylaxis) Qty: 2 1RF Rx Instructions: do not exceed 3 doses per episode alcohol swabs [Alcohol Pads] Pads, Medicated 2 pad topical DAILY Qty: 100 0RF ondansetron 4 mg tablet,disintegrating 4 - 8 mg PO QHS PRN (Reason: nausea and vomiting) Qty: 20 0RF omeprazole 20 mg capsule,delayed release(DR/EC) 20 mg PO BID Qty: 200 1RF Discontinued (DME) insulin syringe-needle U-100 [Sure Comfort Insulin Syringe] 1 mL 30 gauge x 5/16 syringe See Rx Instructions .ROUTE .MEDSUPPLY Qty: 20 0RF Rx Instructions: As directed Humulin N NPH U-100 Insulin 100 unit/mL suspension 15 unit subcut .hs Qty: 30 1RF (DME) lancets Misc See Rx Instructions .MEDSUPPLY Qty: 100 3RF Rx Instructions: Test blood sugar 4 times daily. (DME) Test Strips Misc See Rx Instructions .MEDSUPPLY Qty: 100 3RF Rx Instructions: Test blood sugar 4 times daily. (DME) Blood Glucose Meter Misc See Rx Instructions .MEDSUPPLY Qty: 1 0RF Rx Instructions: As directed Discharge Orders: Discharge Order (Routine); Ordered 03/25/25 Ordered By: Palak Ross Patient Education: OB Over the Counter Medication Information, OB Vaginal/Bottle Feeding, OB Vaginal/Breast Feeding Activity Level: Activity as Tolerated Discharge Diet: Regular Follow Up Appointments: Provider,Not a Local [Primary Care Provider, Family Practice] Forms: [employer] Info Instructions DS:Data Additional Comments Additional comments: hemoglobin 9.8
[2025-03-25 12:03] VITALS: BP 113/71; PULSE 61; RESP 16; TEMP 36.7; O2SAT 96
--- NOTE | 2025-03-28 10:53 | PC.SOCIAL ---
Addendum entered by SANTOSH Mciknley 03/28/25 15:50: Social work note: Per July in CPS at [facility] this case will be sent to a field oncology social work for investigation and follow-up. Social work to follow-up as needed. Addendum entered by SANTOSH Mckinley 03/28/25 15:32: Social work note: The baby's cord blood test results were faxed to [facility] this afternoon at fax number #[phone]. Social work to follow-up as needed. Original Note: Social work note: CPS report made to [facility] for exposure to THC. The baby's cord blood has been sent for testing. No urine sample was able to be obtained in the hospital. Social work to follow-up as needed.
== END 2025-03-25 18:20 | disposition home or self-care (01) | DRG 560 ==
PROVIDERS: Obstetrics & Gynecology; Admitting Provider Obstetrics & Gynecology; Visit Provider Obstetrics & Gynecology
DX: O24.424 Gestational diabetes mellitus in childbirth, insulin controlled (principal); O99.824 Streptococcus B carrier state complicating childbirth; O99.344 Other mental disorders complicating childbirth; F32.9 Major depressive disorder, single episode, unspecified; F41.1 Generalized anxiety disorder; F90.9 Attention-deficit hyperactivity disorder, unspecified type; F43.10 Post-traumatic stress disorder, unspecified; O99.02 Anemia complicating childbirth; D64.9 Anemia, unspecified; O99.334 Smoking (tobacco) complicating childbirth; F17.290 Nicotine dependence, other tobacco product, uncomplicated; F15.21 Other stimulant dependence, in remission; Z79.899 Other long term (current) drug therapy; K21.9 Gastro-esophageal reflux disease without esophagitis; Z3A.37 37 weeks gestation of pregnancy; Z37.0 Single live birth
CPT/HCPCS: 01967; 36415; 80306; 82962; 85018; 85025; 86592; 86850; 86900; 86901; A9270; C1726; J0290; J0665; J2405; J2795; J7120